=== PATIENT | male | born 1945 | race Caucasian/White ===

== ENCOUNTER → 2018-08-16 | Outpatient (CLI) | payer BC ==
--- NOTE | 2018-08-16 10:47 | PCVCIMAG ---
APPROVED REPORT Study performed: 08/16/2018 09:43:41 EXAM: Comprehensive 2D, Doppler, and color-flow Echocardiogram Patient Location: Echo lab Room #: 2Status: routine BSA: 2.28 HR: 55 bpmBP: 146/80 mmHg Rhythm: Bradycardia Other Information Study Quality: Good Risk Factors: Cardiac Risk Factors: HTN, Hyperlipidemia Indications CAD Syncope Hypertension/HDD S/P COR STENT 2D Dimensions IVSd: 10.41 (7-11mm)LVOT Diam: 23.48 (18-24mm) LVDd: 51.58 mm PWd: 10.93 (7-11mm)Ascending Ao: 31.15 (22-36mm) LVDs: 26.37 (25-40mm) Left Atrium: 44.17 (27-40mm) Aortic Root: 25.37 mm LV Single Plane 4CH: 69.40 % LV Single Plane 2CH: 69.40 % Biplane EF: 71.5 % Volumes Left Atrial Volume (Systole) Single Plane 4CH: 74.38 mLSingle Plane 2CH: 69.27 mL Biplane LA Volume: 72.00 mLLA ESV Index: 32.00 mL/m2 Aortic Valve AoV Peak Robbie.: 1.49 m/s AO Peak Gr.: 8.82 mmHgLVOT Max P.51 mmHg LVOT Max V: 1.06 m/s ERIKA Vmax: 3.09 cm2 AI Vmax: 4.73 m/s AI [place]: 1.92 m/s2 AI PHT: 714.30 ms Mitral Valve E/A Ratio: 1.3 MV Decel. Time: 150.96 ms MV E Max Robbie.: 0.64 m/s MV A Robbie.: 0.49 m/s IVRT: 58.82 ms TDI E/Lateral E': 10.67E/Medial E': 10.67 Medial E' Robbie.: 0.06 m/s Lateral E' Robbie.: 0.06 m/s Pulmonary Valve PV Peak Robbie.: 0.89 m/sPV Peak Gr.: 3.14 mmHg Pulmonary Vein P Vein S: 0.76 m/sP Vein A: 0.29 m/s P Vein D: 0.46 m/sP Vein A Dur.: 121.1 msec P Vein S/D Ratio: 1.65 Tricuspid Valve TR Peak Robbie.: 2.51 m/s TR Peak Gr.: 25.24 mmHg TV Vmax: 0.64 m/sPA Pressure: 32.00 mmHg Left Ventricle The left ventricle is normal size. There is normal LV segmental wall motion. There is normal left ventricular wall thickness. Left ventricular systolic function is normal. The left ventricular ejection fraction is within the normal range. LVEF is 65-70%. Grade I - abnormal relaxation pattern. Right Ventricle The right ventricle is normal size. The right ventricular systolic function is normal. Atria The left atrium size is normal. The right atrium size is normal. Aortic Valve Aortic valve is trileaflet with minimal sclerotic changes. Mild aortic regurgitation. There is no aortic valvular stenosis. Mitral Valve The mitral valve is normal in structure. There is no mitral valve regurgitation noted. No evidence of mitral valve stenosis. Tricuspid Valve The tricuspid valve is normal in structure. Trace tricuspid regurgitation with a PA pressure of 32 mmHg. Pulmonic Valve The pulmonary valve is normal in structure. There is no pulmonic valvular regurgitation. Great Vessels The aortic root is normal in size. The ascending aorta is normal in size. Aortic arch is not well visualized. IVC is normal in size and collapses >50% with inspiration. Pericardium There is no pericardial effusion. There is no pleural effusion. <Conclusion> The left ventricle is normal size. There is normal left ventricular wall thickness. Left ventricular systolic function is normal. The right ventricle is normal size. The left atrium size is normal. The right atrium size is normal. Mild aortic regurgitation. The mitral valve is normal in structure. Trace tricuspid regurgitation with a PA pressure of 32 mmHg.
== END | disposition home or self-care (01) ==
LOC: PCVCIMAG 09:19
PROVIDERS: ATTEND Internal Medicine Cardiovascular Disease
DX: I35.1 Nonrheumatic aortic (valve) insufficiency (principal); I25.10 Atherosclerotic heart disease of native coronary artery without angina pectoris; R55 Syncope and collapse
CPT/HCPCS: 93306

== ENCOUNTER → 2019-02-16 | Outpatient (CLI) | payer BC ==
--- NOTE | 2019-02-16 10:47 | PCVCIMAG ---
APPROVED REPORT Study performed: 02/16/2019 09:59:57 Exam: Stress Echocardiogram Indication: CAD s/p PCI, htn, hlp Stress Nurse: Sumi Samaniego RN Status: routine Ht: 6 ft 0 in HR: 67 bpm BP: 140/84 mmHg Rhythm: NSR Procedure The patient underwent an Exercise Stress Test using the Carlos Enrique Protocol. Blood pressure, heart rate, and EKG were monitored. An Echocardiogram was performed by solar panel technician in four stages in quad fashion. At peak stress, four selected images were obtained and placed side by side with resting images for comparison. Stress Test Details Stress Test: Exercise stress testing was performed using a Carlos Enrique protocol. HR Resting HR: 67 bpmMax Heart Rate (APMHR): 148 bpm Max HR Achieved: 134 bpmTarget HR (85% APMHR): 125 bpm % of APMHR: 90 Recovery HR: 66 bpm HR response to stress: Normal HR response to stress BP Resting BP: 140/84 mmHg Max BP: 224/94 mmHg Recovery BP: 180/84 mmHg BP response to stress: Normal blood pressure response to stress. ECG Resting ECG: Sinus Rhythm, LVH with repolarization changes Stress ECG: Sinus Rhythm, nonspecific ST-T abnormalities ST Change: Nondiagnostic resting ST abnormalities Arrhythmia: rare PVC Recovery ECG: Sinus Rhythm Recovery ST Change: inferior ST depression Recovery Arrhythmia: PVC Clinical Reason for Termination: Maximal effort Stress Symptoms: Dyspnea Exercise duration: 7 min 58 sec Highest Stage Achieved: Stage 3: 3.4 mph at 14% grade. Exercise capacity: 10.4 METs Overall Exercise Capacity for Age: Normal Scale: Sedentary Angina Score: None Pre-Stress Echo The resting Echocardiogram showed normal left ventricular contractility with an estimated Ejection Fraction of about >55%. The resting echocardiogram demonstrated normal wall motion in all wall segments. Post-Stress Echo The stress Echocardiogram showed normal left ventricular contractility with an estimated Ejection Fraction of about 65%. Compared to rest, there were no stress-induced wall motion abnormalities. Clinical No clinical evidence for ischemia. Conclusion Clinical Response: Non-ischemic Exercise Capacity: Average Stress ECG Response: Indeterminant Stress Echo Images: Non-ischemic The left ventricle is normal in size and mild LVH in both the rest and stress images. Mild aortic regurgitation. Normal mitral, tricuspid and pulmonic valves by color doppler. Other Information Study Quality: Adequate <Conclusion> The left ventricle is normal in size and mild LVH in both the rest and stress images. Mild aortic regurgitation. Normal mitral, tricuspid and pulmonic valves by color doppler.
== END | disposition home or self-care (01) ==
LOC: PCVCIMAG 09:51
PROVIDERS: ATTEND Internal Medicine Cardiovascular Disease
DX: I06.1 Rheumatic aortic insufficiency (principal); I25.10 Atherosclerotic heart disease of native coronary artery without angina pectoris; I10 Essential (primary) hypertension; E78.00 Pure hypercholesterolemia, unspecified; R55 Syncope and collapse; G47.33 Obstructive sleep apnea (adult) (pediatric); Z85.46 Personal history of malignant neoplasm of prostate; Z87.891 Personal history of nicotine dependence; Z72.89 Other problems related to lifestyle
CPT/HCPCS: 93325; 93351